=== PATIENT | male | born 1965 | race African-American/Black ===

== ENCOUNTER 2019-12-16 12:49 | Emergency (ER) | payer MEDICAID, OTHER ==
[~2019-12-16] VITALS: Ht 188 cm; Wt 79.4 kg
[~2019-12-16 12:49] MED LIST: NKM; UNOBMED
[2019-12-16] MEDS ORDERED: ZITHROMAX250 MG ORAL (14:20)
[2019-12-16] MEDS ORDERED: ALBUTEROL SULF8.5 G1 INH (14:20)
--- NOTE | 2019-12-16 14:29 | Emergency Room Report ---
History of Present Illness General Chief Complaint: Upper Respiratory Illness Source: Patient Present Illness HPI Disclaimer: Please note that this report is being documented using [employer] technology. This can lead to erroneous entry secondary to incorrect interpretation by the dictating instrument. HPI: 54-year-old male presents from home due to URI symptoms. He has had cough , body aches runny nose and loss of smell for the past 3 days. He reports positive sick contacts. Denies any nausea, vomiting, diarrhea. Patient states COVID status unknown on sick contacts. He is an active smoker and denies a history of COPD but occasional asthma. No fevers. PMH: Mild asthma PSH: Reviewed Social Hx: Patient active smoker occasional drinker denied illicit drug use Allergies: Coded Allergies: No Known Allergies (Unverified , 12/15/13) COVID-19 Screening Contact w/high risk pt: No Experienced COVID-19 symptoms?: Yes COVID-19 Testing performed MANAGER RETENTION: No Patient History Reviewed Nursing Documentation: PMH: Agreed; PSxH: Agreed Nursing Documentation-PMH Past Medical History: No Stated History Review of Systems All Other Systems: negative except mentioned in HPI Physical Exam Vital Signs Date Time Temp Pulse Resp B/P (MAP) Pulse Ox O2 Delivery O2 Flow Rate FiO2 12/16/19 13:46 98.8 88 18 99/76 (84) 97 Room Air Sp02 EP Interpretation: reviewed, normal General Appearance: well appearing, no apparent distress Head: normocephalic, atraumatic Eyes: bilateral eye PERRL, bilateral eye EOMI ENT: hearing grossly normal, moist mucus membranes Neck: full range of motion, supple Respiratory: lungs clear, normal breath sounds, no rhonchi, no respiratory distress, no retraction, no wheezing Cardiovascular #1: normal peripheral pulses, regular rate, rhythm, no murmur Gastrointestinal: non tender, soft, non-distended, no guarding Neurologic: alert, oriented x3, no focal defects Skin: normal color, warm/dry Medical Decision Making Diagnostic Impression: Primary Impression: URI (upper respiratory infection) ER Course Differential diagnosis included but not limited to COVID-19 URI bronchitis seasonal allergies to name a few. On exam patient in no acute distress and nontoxic-appearing. Vital signs stable. Afebrile. Not hypoxic. As patient is having symptoms of COVID-19 I will treat for presumed COVID-19. Did prescribe oral azithromycin. Also provided inhaler as needed for any wheezing or shortness of breath due to his history of asthma. Patient otherwise instructed to home isolate. Was given return precautions was stable for discharge. Last Vital Signs Date Time Temp Pulse Resp B/P (MAP) Pulse Ox O2 Delivery O2 Flow Rate FiO2 12/16/19 13:59 86 18 Room Air 12/16/19 13:46 98.8 99/76 (84) 97 Disposition: HOME, SELF-CARE Condition: Stable Scripts Azithromycin* (ZITHROMAX*) 250 Mg Tablet 250 MG ORAL DAILY, #6 TAB 0 Refills Take two tables once daily for 1 day, then one tablet once daily for 4 days. Prov: Antony Rosales M.D. 12/16/19 Albuterol Sulfate* (Albuterol Sulfate Hfa*) 8.5 Gm Hfa.aer.ad 2 PUFF INH Q6H PRN for For Cough, #1 INH Prov: Antony Rosales M.D. 12/16/19 Patient Instructions: Upper Respiratory Infection, Adult Additional Instructions: We are treating you for presumed covid-19. Please stay at home at least 7 days have passed after the symptoms first. And at least 3 days after you have recovered. Recovery means that fever has been gone for 72 hours without the use of fever reducing medications and your cough and shortness of breath have improved. Please do not leave your home during this time except to seek urgent medical care. All of your close contacts should be quarantined at home at least 14 days since last contact with yourself. Antony Rosales M.D. Dec 16, 2019 14:29
[2019-12-16 14:45] VITALS: BP 113/77
== END 2019-12-16 14:45 | disposition home or self-care (01) ==
LOC: EMR 14:05
DX: J06.9 Acute upper respiratory infection, unspecified (principal); F17.200 Nicotine dependence, unspecified, uncomplicated
CPT/HCPCS: 99282